=== PATIENT | male | born 2005 | race Caucasian/White ===

== ENCOUNTER 2024-08-23 22:14 | Emergency (ER) | payer BC ==
[2024-08-23] MEDS ORDERED: Acetaminophen 500 MG TAB ONE (22:39)
== END 2024-08-23 23:43 | disposition home or self-care (01) ==
LOC: CSHERS 22:14
DX: J11.1 Influenza due to unidentified influenza virus with other respiratory manifestations (principal); F17.210 Nicotine dependence, cigarettes, uncomplicated
CPT/HCPCS: 87081; 87428; 87430; 99283